=== PATIENT | female | born 1985 | race Caucasian/White ===

== ENCOUNTER → 2016-03-21 | Outpatient (REF) | payer BC ==
[~2016-03-21] MED LIST: IBUP60TA PO; PERC5TAB6 PO; VITAPRTA PO
== END | disposition home or self-care (01) ==
LOC: M LAB REF 16:49
PROVIDERS: ATTEND Advanced Practice Midwife
DX: Z12.4 Encounter for screening for malignant neoplasm of cervix (principal)

== ENCOUNTER → 2017-05-05 | Outpatient (CLI) | payer BC ==
[2017-05-05 14:28] LABS: ALBUMIN 4.1 GM/DL (3.2-5.2); ALBUMIN/GLOBULIN RATIO 1.28 (1.00-1.93); ALKALINE PHOSPHATASE 72 U/L (45-117); ALT/SGPT 22 U/L (12-78); ANION GAP 6 MEQ/L (8-16); AST/SGOT 15 U/L (7-37); BILIRUBIN,TOTAL 0.5 MG/DL (0.2-1.0); BLOOD UREA NITROGEN 7 MG/DL (7-18); CALCIUM LEVEL 8.6 MG/DL (8.5-10.1); CARBON DIOXIDE LEVEL 28 MEQ/L (21-32); CHLORIDE LEVEL 106 MEQ/L (98-107); CREATININE FOR GFR 0.63 MG/DL (0.55-1.30); GLOMERULAR FILTRATION RATE > 60.0 (>60); GLUCOSE, FASTING 88 MG/DL (70-100); POTASSIUM SERUM 4.1 MEQ/L (3.5-5.1); SODIUM LEVEL 140 MEQ/L (136-145); TOTAL PROTEIN 7.3 GM/DL (6.4-8.2)
[2017-05-05 14:32] LABS: BASO % 0.5 % (0.0-1.0); EOS # 0.1 10^3/uL (0.0-0.50); EOS % 1.1 % (0.0-3.0); HEMOGLOBIN 13.6 g/dl (12.0-16.0); IMMATURE GRANULOCYTE % 0.3 % (0-3.0); LYMPH # 2.3 10^3/uL (1.5-6.5); LYMPH % 34.8 % (24.0-44.0); MEAN CORPUSCULAR HEMOGLOBIN 28.9 pg (27.0-33.0); MEAN CORPUSCULAR HGB CONC 33.2 g/dl (32.0-36.5); MEAN CORPUSCULAR VOLUME 87.2 fl (80.0-96.0); MONO # 0.4 10^3/uL (0.0-0.8); MONO % 6.3 % (0.0-5.0); NEUTROPHILS # 3.7 10^3/uL (1.8-7.7); PLATELET COUNT, AUTOMATED 237 10^3/uL (150-450); RED CELL DISTRIBUTION WIDTH 12.3 % (11.5-14.5); WHITE BLOOD COUNT 6.5 10^3/uL (4.0-10.0)
== END ==
LOC: M SMT 11:52
DX: R10.11 Right upper quadrant pain (principal)
CPT/HCPCS: 80053

== ENCOUNTER → 2018-10-05 | Outpatient (REF) | payer BC ==
[~2018-10-05] MED LIST changes: +IBUP600T42 PO; -IBUP60TA PO; +PERC5TAB12 PO; -PERC5TAB6 PO
[2018-10-07 14:12] LABS: HPV HYBRID CAPTURE II Negative (Negative)
== END ==
LOC: M LAB REF 18:34
PROVIDERS: ATTEND Advanced Practice Midwife
DX: Z12.4 Encounter for screening for malignant neoplasm of cervix (principal)
CPT/HCPCS: 87624; G0123

== ENCOUNTER → 2019-03-08 | Outpatient (REF) | payer BC ==
[2019-03-08 14:02] LABS: INFLUENZA A AMPLIFICATION NEGATIVE (NEGATIVE); INFLUENZA B AMPLIFICATION NEGATIVE (NEGATIVE)
== END ==
LOC: M LAB REF 13:03
PROVIDERS: ATTEND Physician Assistant Medical
DX: J11.1 Influenza due to unidentified influenza virus with other respiratory manifestations (principal)

== ENCOUNTER → 2019-12-28 | Outpatient (CLI) | payer OTHER ==
[2019-12-28 09:05] LABS: HEMATOCRIT 33.5 % (36.0-47.0); MEAN CORPUSCULAR HEMOGLOBIN 30.9 pg (27.0-33.0); MEAN CORPUSCULAR HGB CONC 32.8 g/dl (32.0-36.5); MEAN CORPUSCULAR VOLUME 94.1 fl (80.0-96.0); PLATELET COUNT, AUTOMATED 188 10^3/uL (150-450); RED BLOOD COUNT 3.56 10^6/uL (4.00-5.40); WHITE BLOOD COUNT 6.6 10^3/uL (4.0-10.0)
== END ==
LOC: M LAB 07:14
PROVIDERS: ATTEND Specialist
DX: O34.211 Maternal care for low transverse scar from previous cesarean delivery (principal); Z3A.00 Weeks of gestation of pregnancy not specified

== ENCOUNTER → 2020-02-29 | Outpatient (REF) | payer OTHER | LOC: M SFHCWAGY 10:24 | PROVIDERS: ATTEND Specialist | DX: Z34.83 Encounter for supervision of other normal pregnancy, third trimester (principal) ==

== ENCOUNTER → 2020-03-17 | Outpatient (CLI) | payer OTHER ==
[~2020-03-17] MED LIST changes: +IBUP80TA PO; +OXYC1TAB23 PO
== END ==
LOC: M LABSMTC 09:35
PROVIDERS: ATTEND Anesthesiology
DX: Z01.812 Encounter for preprocedural laboratory examination (principal); Z20.822 Contact with and (suspected) exposure to COVID-19

== ENCOUNTER 2020-03-22 05:13 | Inpatient (IN) | payer OTHER ==
[~2020-03-22] VITALS: Ht 172.7 cm; Wt 83.9 kg
[2020-03-22] VITALS (8 sets, daily range): BP systolic 107–121; BP diastolic 56–71
[~2020-03-22 05:13] MED LIST changes: -IBUP80TA PO; -OXYC1TAB23 PO
--- OUTSIDE RECORDS SUMMARY | 2020-03-22 05:16 | CCD ---
Author Author [facility] Organization [facility] Address Unknown Phone Unavailable Care Team Providers Care Associate Sales Name Role Phone Kevan Delarosa CNM Unavailable Unavailabl Kevan Gille CNM Unavailable Unavailabl e Kevan Delarosa Madeleine CNM Unavailable Unavailabl e Edithlandigham, Kevan Madeleine CNM Unavailable Unavailabl e EdithlandighamKevan Madeleine CNM Unavailable Unavailabl e LuisamKevan Madeleine CNM Unavailable Unavailabl leila SmithamKevan Madeleine CNM Unavailable Unavailabl leila SmithamKevan Madeleine CNM Unavailable Unavailabl e Luisam D Madeleine CNM Unavailable Unavailabl Kevan Gill Madeleine CNM Unavailable Unavailabl Kevan Gill Madeleine CNM Unavailable Unavailabl Kevan Gill Madeleine CNM Unavailable Unavailabl e Vallandigham, D Madeleine CNM Unavailable Unavailabl e Vallandigham, D Madeleine CNM Unavailable Unavailabl e Vallandigham, D Madeleine CNM Unavailable Unavailabl e Vallandigham, D Madeleine CNM Unavailable Unavailabl e Vallandigham, D Madeleine CNM Unavailable Unavailabl e Vallandigham, D Madeleine CNM Unavailable Unavailabl e Vallandigham, D Madeleine CNM Unavailable Unavailabl e Vallandigham, D Madeleine CNM Unavailable Unavailabl e Vallandigham, D Madeleine CNM Unavailable Unavailabl e Vallandigham, D Madeleine CNM Unavailable Unavailabl e Vallandigham, D Madeleine CNM Unavailable Unavailabl e Vallandigham, D Madeleine CNM Unavailable Unavailabl e Vallandigham, D Madeleine CNM Unavailable Unavailabl e Petit, Breanna Unavailable Unavailable Petit, Breanna Unavailable Unavailable [place]LANDO, JAD Unavailable Unavailable Re-disclosure Warning The records that you are about to access may contain information from federally-assisted alcohol or drug abuse programs. If such information is present, then the following federally mandated warning applies: This information has been disclosed to you from records protected by federal confidentiality rules (42 CFR part 2). The federal rules prohibit you from making any further disclosure of this information unless further disclosure is expressly permitted by the written consent of the person to whom it pertains or as otherwise permitted by 42 CFR part 2. A general authorization for the release of medical or other information is NOT sufficient for this purpose. The Federal rules restrict any use of the information to criminally investigate or prosecute any alcohol or drug abuse patient.The records that you are about to access may contain highly sensitive health information, the redisclosure of which is protected by Article 27-F of the [facility] Public Health law. If you continue you may have access to information: Regarding HIV / AIDS; Provided by facilities licensed or operated by the [facility] Office of Mental Health; or Provided by the [facility] Office for People With Developmental Disabilities. If such information is present, then the following [facility] mandated warning applies: This information has been disclosed to you from confidential records which are protected by state law. State law prohibits you from making any further disclosure of this information without the specific written consent of the person to whom it pertains, or as otherwise permitted by law. Any unauthorized further disclosure in violation of state law may result in a fine or custodial sentence or both. A general authorization for the release of medical or other information is NOT sufficient authorization for further disc losure. Allergies and Adverse Reactions Type Description Substance Reaction Status Data Source(s ) Drug Class NO KNOWN ALLERGIES NO KNOWN ALLERGIES [facility] Family History Family Member Name Family Member Gender Family Member Status Date o f Status Description Data Source(s) Unknown Unknown Problem MEDENT ([facility], ) Unknown Unknown Problem MEDENT ([facility], ) Unknown Unknown Problem MEDENT ([facility], ) Encounters Encounter Providers Location Date Indications Data Source(s ) ( ESTOB) [facility] Est OB [address] [place] [address] 03/08/2020 12:00:00 AM EST eCW1 ([facility]) ( ESTOB) [facility] Est OB [address] [place] [address] 02/29/2020 12:00:00 AM EST eCW1 ([facility]) ( ESTOB) enter Est OB [address] [place] [address] 02/15/2020 12:00:00 AM EST eCW1 ([facility]) ( ESTOB) [facility] Est OB [address] [place] [address] 01/27/2020 12:00:00 AM EST eCW1 ([facility]) Unknown [address] [facility] [address] 01/10/2020 12:00:00 AM EST eCW1 ([facility]) ( ESTOB) enter Est OB [address] [place] [address] 01/04/2020 12:00:00 AM EST eCW1 ([facility]) ( ESTOB) [facility] Est OB [address] [place] [address] 12/29/2019 12:00:00 AM EST eCW1 ([facility]) ( ESTOB) [facility] Est OB [address] [place] [address] 12/01/2019 12:00:00 AM EDT eCW1 ([facility]) Outpatient Attender: Breanna PetitRefhosseiner: Henrry Alexis [facility] [id number] 2019 12:00:00 AM EDT - 2019 02:54:49 PM ED T Encounter for procreative genetic counseling [facility] Encounter for procreative genetic counse luz Outpatient Attender: JAD PERRYRefhosseiner: Madeleine Valnerisawilda [facility] 2019 12:00:00 AM EDT [facility] ([facility] ESTOB) [facility] Est OB [address] [place] [address] 09/07/2019 12:00:00 AM EDT eCW1 ([facility]) Immunizations Vaccine Date Status Description Data Source(s) Tdap 01/27/2020 10:31:00 AM EST completed e CW1 ([facility]) Tdap 01/27/2020 10:31:00 AM EST completed e CW1 ([facility]) Tdap 01/27/2020 10:31:00 AM EST completed e CW1 ([facility]) Tdap 01/27/2020 10:31:00 AM EST completed e CW1 ([facility]) Tdap 01/27/2020 10:31:00 AM EST completed e CW1 ([facility]) Medications Medication Brand Name Start Date Product Form Dose Route Admi nistrative Instructions Pharmacy Instructions Status Indications Reaction Description Data Source(s) 875-125 mg 03/08/2019 12:00:00 AM EST tablet 20 TAKE ONE TABLET BY MOUTH TWO TIMES A DAY FOR 10 DAYS TAKE ONE TABLET BY MOUTH TWO TIMES A DAY FOR 10 DAYS SOLD: 03/08/2019 [facility] Insurance Providers Payer name Policy type / Coverage type Policy ID Covered green party ID Covered green party's relationship to naranjo Policy [place] Plan Information [facility] [id number] [facility] [id number] SP [id number] [facility] U [id number] Spouse [id number] EXCELL[employer] H [id number] Self [id number] [employer] [place] 306/806 [id number] SP [id number] [employer] B [id number] S VYA [id number] [employer] [place] 306/806 [id number] SP [id number] [employer] Health Maintenance Organization (HMO) Self [employer] Health Maintenance Organization (HMO) Self [employer] B [id number] S VYS [id number] [employer] U [id number] [employer] [id number] FA2 [id number] [facility] CLAIMS [id number] [id number] [place] WAT[place]ren PPO 302/307 [id number] SP [id number] Problems, Conditions, and Diagnoses Code Display Name Description Problem Type Effective Dates Data Source(s) Z34.80 care Supervision of other normal Jose marroquin 09/03/2019 12:00:00 AM EDT eCW1 ([facility]) O35.2XX0 Maternal care for (suspected ) hereditary disease in fetus, not applicable or unspecified Maternal care for (suspected) hereditary disease in fetus, not applicable or unspecified Diagnosis 2019 12:22:39 PM [facility] Z31.5 Encounter for procreative genetic counse ling Encounter for procreative genetic counseling Diagnosis 2019 12:22:[address] [facility] Surgeries/Procedures Procedure Description Date Indications Data Source(s) Immunization: Boostrix 0.5mL IM (TDAP) 01/27/2020 12:0 0:00 AM EST eCW1 ([facility]) Results ID Date Data Source [id number] 03/17/2020 10:00:00 AM EST [facility] Name Value Range Interpretation Code Description Data Carole rce(s) Supporting Document(s) SARS coronavirus 2 RNA Not Detected [facility] [place] This lab was ordered by [facility] and reported by [facility]. ID Date Data Source Glucose Challenge Test 1 Hour 12/30/2019 08:18:36 AM EST eCW 1 ([facility]) Name Value Range Interpretation Code Description Data Carole rce(s) Supporting Document(s) 95 GLUCOSE CHALLENGE TEST 1 HOUR eCW1 ([facility]) ID Date Data Source CBC - Complete Blood Count 12/30/2019 08:18:33 AM EST eCW1 ( [facility]) Name Value Range Interpretation Code Description Data Carole rce(s) Supporting Document(s) 3.56 RED BLOOD COUNT eCW1 ([facility]) 11.0 HEMOGLOBIN eCW1 ([facility]) 6.6 WHITE BLOOD COUNT eCW1 ([facility]) 33.5 HEMATOCRIT eCW1 ([facility]) 94.1 MEAN CORPUSCULAR VOLUME eCW1 ( [facility]) 30.9 MEAN CORPUSCULAR HEMOGLOBIN eC W1 ([facility]) 32.8 MEAN CORPUSCULAR HGB CONC eCW1 ([facility]) 12.6 RED CELL DISTRIBUTION WIDTH eC W1 ([facility]) 188 PLATELET COUNT, AUTOMATED eCW1 ([facility]) ID Date Data Source [id number] 2019 02:35:38 PM EDT [facility] Name Value Range Interpretation Code Description Data Carole rce(s) Supporting Document(s) Progress Note [facility] [id number] lbm [file] [id number]= ID Date Data Source HEPATITIS C ANTIBODY INDEX 09/08/2019 01:59:54 PM EDT eCW1 ( [facility]) Name Value Range Interpretation Code Description Data Carole rce(s) Supporting Document(s) 0.1 eCW1 ([facility]) ID Date Data Source RUBELLA IMMUNE STATUS IgG 09/08/2019 01:59:45 PM EDT eCW1 ([facility]) Name Value Range Interpretation Code Description Data Carole rce(s) Supporting Document(s) IMMUNE eCW1 ([facility]) ID Date Data Source SYPHILIS ANTIBODY (RPR SCREEN) 09/08/2019 01:59:34 PM EDT eC W1 ([facility]) Name Value Range Interpretation Code Description Data Carole rce(s) Supporting Document(s) NONREACTIVE eCW1 ([facility]) ID Date Data Source [id number] 09/08/2019 01:59:26 PM EDT eCW1 ([facility]) Name Value Range Interpretation Code Description Data Carole rce(s) Supporting Document(s) eCW1 ([facility]) ID Date Data Source URINE CULTURE 09/08/2019 01:33:05 PM EDT eCW1 ([facility]) Name Value Range Interpretation Code Description Data Carole rce(s) Supporting Document(s) eCW1 ([facility]) ID Date Data Source CHLAMYDIA & GC DNA AMPLIFICAT 09/08/2019 09:01:11 AM EDT eCW 1 ([facility]) Name Value Range Interpretation Code Description Data Carole rce(s) Supporting Document(s) Chlamydia trachomatis rRNA [Presence] in Unspecified specimen by Probe and target amplification method NEGATIVE eCW1 ([facility]) ID Date Data Source HBSAG 09/08/2019 02:00:05 AM EDT eCW1 ([facility]) Name Value Range Interpretation Code Description Data Carole rce(s) Supporting Document(s) NEGATIVE eCW1 ([facility]) ID Date Data Source Type and Screen Prenatal1 09/07/2019 05:53:49 AM EDT eCW1 ([facility]) Name Value Range Interpretation Code Description Data Carole rce(s) Supporting Document(s) NEGATIVE eCW1 ([facility]) Procedure Vital Signs ID Date Data Source UNK Name Value Range Interpretation Code Description Data Source(s) Diastolic blood pressure 70 mm[Hg] 70 mm[Hg] eCW1 ([facility]) Systolic blood pressure 110 mm[Hg] 110 mm[Hg] e 1 ([facility]) Body weight 184 [lb_av] 184 [lb_av] W1 ([facility]) Diastolic blood pressure 62 mm[Hg] 62 mm[Hg] eCW1 ([facility]) Systolic blood pressure 108 mm[Hg] 108 mm[Hg] e CW1 ([facility]) Body mass index (BMI) [Ratio] 28.25 kg/m2 28.25 kg/m2 [facility] ([facility]) Body height 68 [in_i] 68 [in_i] eCW1 ([facility]) Body weight 84.28 kg 84.28 kg W1 ([facility]) Body weight 185.8 [lb_av] 185.8 [lb_av] eCW1 ([facility]) Diastolic blood pressure 68 mm[Hg] 68 mm[Hg] eCW1 ([facility]) Systolic blood pressure 108 mm[Hg] 108 mm[Hg] e CW1 ([facility]) Body mass index (BMI) [Ratio] 27.703 kg/m2 27.7 03 kg/m2 eCW1 ([facility]) Body height 68 [in_i] 68 [in_i] eCW1 ([facility]) Body weight 82.64 kg 82.64 kg eCW1 ([facility]) Body weight 182.2 [lb_av] 182.2 [lb_av] eCW1 ([facility]) Diastolic blood pressure 74 mm[Hg] 74 mm[Hg] eCW1 ([facility]) Systolic blood pressure 128 mm[Hg] 128 mm[Hg] e CW1 ([facility]) Body mass index (BMI) [Ratio] 27.369 kg/m2 27.3 69 kg/m2 eCW1 ([facility]) Body height 68 [in_i] 68 [in_i] eCW1 ([facility]) Body weight 180 [lb_av] 180 [lb_av] eCW1 ([facility]) Diastolic blood pressure 72 mm[Hg] 72 mm[Hg] eCW1 ([facility]) Systolic blood pressure 132 mm[Hg] 132 mm[Hg] e CW1 ([facility]) Body mass index (BMI) [Ratio] 26.548 kg/m2 26.5 48 kg/m2 eCW1 ([facility]) Body height 68 [in_i] 68 [in_i] eCW1 ([facility]) Body weight 79.2 kg 79.2 kg eCW1 ([facility]) Body weight 174.6 [lb_av] 174.6 [lb_av] eCW1 ([facility]) Diastolic blood pressure 70 mm[Hg] 70 mm[Hg] eCW1 ([facility]) Systolic blood pressure 122 mm[Hg] 122 mm[Hg] e CW1 ([facility]) Body mass index (BMI) [Ratio] 26.487 kg/m2 26.4 87 kg/m2 eCW1 ([facility]) Body height 68 [in_i] 68 [in_i] eCW1 ([facility]) Body weight 79.02 kg 79.02 kg eCW1 ([facility]) Body weight 174.2 [lb_av] 174.2 [lb_av] eCW1 ([facility]) Diastolic blood pressure 62 mm[Hg] 62 mm[Hg] eCW1 ([facility]) Systolic blood pressure 102 mm[Hg] 102 mm[Hg] e CW1 ([facility]) Body mass index (BMI) [Ratio] 25.483 kg/m2 25.4 83 kg/m2 eCW1 ([facility]) Body height 68 [in_i] 68 [in_i] eCW1 ([facility]) Body weight 76.02 kg 76.02 kg eCW1 ([facility]) Body weight 167.6 [lb_av] 167.6 [lb_av] eCW1 ([facility]) Diastolic blood pressure 64 mm[Hg] 64 mm[Hg] eCW1 ([facility]) Systolic blood pressure 122 mm[Hg] 122 mm[Hg] e CW1 ([facility]) Body mass index (BMI) [Ratio] 24.936 kg/m2 24.9 36 kg/m2 W1 ([facility]) Body height 68 [in_i] 68 [in_i] eCW1 ([facility]) Body weight 164 [lb_av] 164 [lb_av] eCW1 ([facility])
--- OUTSIDE RECORDS SUMMARY | 2020-03-22 05:16 | CCD ---
Author Author [facility] Organization [facility] Address Unknown Phone Unavailable Care Team Providers Care Tool And Die Repairer Name Role Phone Quentin Fallon Unavailable PROBLEMS Type Condition ICD9-CM Code [id number] Code Onset Dates Condition S tatus SNOMED Code Notes Problem Supervision of other normal Z34.80 Ac tive [id number] ALLERGIES No Known Allergies ENCOUNTERS from 1987 to 2020-01-14 Encounter Location Date Provider Diagnosis [facility] [address] [place] [address] Dec, Quentin Fallon Maternal care due to low transverse uterine scar from previous delivery O34.211 and 27 weeks gestation of Z3A.27 IMMUNIZATIONS No Information SOCIAL HISTORY Sex Assigned At : Social History Observation Description Sex Assigned At Unknown Alcohol Screening: Question Answer Notes Did you have a drink containing alcohol in the past year? No Points 0 Interpretation Negative REASON FOR REFERRAL No Information VITAL SIGNS Weight 174.2 lbs Dec, Weight-kg 79.02 kg Dec, Height 68 in Dec, BMI 26.487 kg/m2 Dec, Blood pressure systolic 122 mm Hg Dec, Blood pressure diastolic 70 mm Hg Dec, MEDICATIONS Medication SIG (Take, Route, Frequency, Duration) Notes Start Da te End Date Status 27-1 MG 1 tablet Orally Once a day Active PROCEDURES No Information RESULTS No Results REASON FOR VISIT 4 WEEK PN MEDICAL (GENERAL) HISTORY Type Description Date Medical History concussion 2005 Medical History chronic sinusitis Surgical History C section 2016 Hospitalization History childbirth Goals Section No Information Health Concerns No Information MEDICAL EQUIPMENT No Information MENTAL STATUS No Information FUNCTIONAL STATUS No Information ASSESSMENTS Encounter Date Diagnosis Assessment Notes Treatment Notes Treatm ent Clinical Notes Dec, Maternal care due to low tra nsverse uterine scar from previous delivery (ICD-10 - O34.211) Dec, 27 weeks gestation of (ICD-10 - Z3A.27 ) PLAN OF TREATMENT Next Appt Details Provider Name:Madeleine Delarosa, 2020-01-27 10:00:00 AM, [address] [place] [address], [phone], Provider Name:Quentin Fallon, 2020-02-29 02:20:00 PM, [address] [place] [address], [phone], Provider Name:Quentin Fallon, 2020-03-22 07:30:00 AM, [address] [place] [address], [phone], Provider Name:Baltazar Dumont, 2020-03-22 0 7:30:00 AM, [address] [place] [address], [phone], Provider Name:Quentin Fallon, 2020-04-05 01:00:00 PM, [address] [place] [address], [phone], Provider Name:Quentin Fallon, 2020-05-16 01:00:00 PM, [address] [place] [address], [phone], Insurance Providers Payer Name Payer Address Payer Phone Insured Name Patient Relati onship to Insured Coverage Start Date Coverage End Date [employer] [address] [address] [facility] [address] DINA TOLBERT self
--- OUTSIDE RECORDS SUMMARY | 2020-03-22 05:16 | CCD ---
Author Author [facility] Organization [facility] Address Unknown Phone Unavailable Care Team Providers Care Nurse Emergency Room Name Role Phone Loretta Almeida Unavailable PROBLEMS Type Condition ICD9-CM Code [id number] Code Onset Dates Condition S tatus SNOMED Code Notes Problem Supervision of other normal Z34.80 Ac tive [id number] ALLERGIES No Known Allergies ENCOUNTERS from 1987 to 2020-02-16 Encounter Location Date Provider Diagnosis [facility] [address] [place] [address] Jan, Loretta Almeida Previous de livery affecting O34.219 and 33 weeks gestation of Z3A.33 IMMUNIZATIONS Vaccine Route Administration Date Status TDAP 0.5mL (Boostrix) IM Intramuscular Jan 27, 2020 Administe red SOCIAL HISTORY Sex Assigned At : Social History Observation Description Sex Assigned At Unknown Alcohol Screening: Question Answer Notes Did you have a drink containing alcohol in the past year? No Points 0 Interpretation Negative REASON FOR REFERRAL No Information VITAL SIGNS Weight 182.2 lbs Jan, Weight-kg 82.64 kg Jan, Height 68 in Jan, BMI 27.703 kg/m2 Jan, Blood pressure systolic 108 mm Hg Jan, Blood pressure diastolic 68 mm Hg Jan, MEDICATIONS Medication SIG (Take, Route, Frequency, Duration) Notes Start Da te End Date Status 27-1 MG 1 tablet Orally Once a day Active PROCEDURES No Information RESULTS No Results REASON FOR VISIT 4WK PN MEDICAL (GENERAL) HISTORY Type Description Date Medical History concussion 2004 Medical History chronic sinusitis Surgical History C section 2016 Hospitalization History childbirth Goals Section No Information Health Concerns No Information MEDICAL EQUIPMENT No Information MENTAL STATUS No Information FUNCTIONAL STATUS No Information ASSESSMENTS Encounter Date Diagnosis Assessment Notes Treatment Notes Treatm ent Clinical Notes Jan, Previous delivery affecting pre gnancy (ICD-10 - O34.219) Jan, 33 weeks gestation of (ICD-10 - Z3A.33 ) PLAN OF TREATMENT Next Appt Details 2 Weeks Reason:PN Provider Name:Quentin Fallon, 2020-02-29 02:20:00 PM, [address] [place] [address], [phone], Provider Name:Madeleine Delarosa, 2020-03-02 10:00:00 AM, [address] [place] [address], [phone], Provider Name:Quentin Fallon, 2020-03-22 07:30:00 AM, [address] [place] [address], [phone], Provider Name:Baltazar Dumont, 2020-03-22 0 7:30:00 AM, [address] [place] [address], [phone], Provider Name:Quentin Fallon, 2020-04-05 01:00:00 PM, [address] [place] [address], [phone], Provider Name:Quentin Fallon, 2020-05-16 01:00:00 PM, [address] [place] [address], [phone], Follow Up:2 WeeksPN Insurance Providers Payer Name Payer Address Payer Phone Insured Name Patient Relati onship to Insured Coverage Start Date Coverage End Date [facility] [address] [address] [facility] [phone] DINA TOLBERT self
--- OUTSIDE RECORDS SUMMARY | 2020-03-22 05:16 | CCD ---
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 Name Role Phone Quentin Fallon Unavailable PROBLEMS Type Condition ICD9-CM Code [id number] Code Onset Dates Condition S tatus SNOMED Code Notes Problem Supervision of other normal Z34.80 Ac tive [id number] ALLERGIES No Known Allergies ENCOUNTERS from 1987 to 2020-01-10 Encounter Location Date Provider Diagnosis [facility] [address] [place] [phone] Dec, Quentin Fallon IMMUNIZATIONS No Information SOCIAL HISTORY Sex Assigned At : Social History Observation Description Sex Assigned At Unknown Alcohol Screening: Question Answer Notes Did you have a drink containing alcohol in the past year? No Points 0 Interpretation Negative REASON FOR REFERRAL No Information VITAL SIGNS No information MEDICATIONS Medication SIG (Take, Route, Frequency, Duration) Notes Start Da te End Date Status 27-1 MG 1 tablet Orally Once a day Active PROCEDURES No Information RESULTS No Results REASON FOR VISIT AUTHORIZATION MEDICAL (GENERAL) HISTORY Type Description Date Medical History concussion 2004 Medical History chronic sinusitis Surgical History C section 2016 Hospitalization History childbirth Goals Section No Information Health Concerns No Information MEDICAL EQUIPMENT No Information MENTAL STATUS No Information FUNCTIONAL STATUS No Information ASSESSMENTS No Information PLAN OF TREATMENT Next Appt Details Provider Name:Madeleine Delarosa, 2020-01-27 10:00:00 AM, [address] [place] [address], [phone], Provider Name:Quentin Fallon, 2020-02-29 02:20:00 PM, [address] [place] [address], [phone], Provider Name:Quentin Fallon, 2020-03-22 07:30:00 AM, [address] [place] [address], [phone], Provider Name:Baltazar Dmuont, 2020-03-22 0 7:30:00 AM, [address] [place] [address], [phone], Provider Name:Quentin Fallon, 2020-04-05 01:00:00 PM, [address] [place] [address], [phone], Provider Name:Quentin Fallon, 2020-05-16 01:00:00 PM, [address] [place] [address], [phone], Insurance Providers Payer Name Payer Address Payer Phone Insured Name Patient Relati onship to Insured Coverage Start Date Coverage End Date [facility] [address] [address] [facility] [phone] DINA TOLBERT self
--- OUTSIDE RECORDS SUMMARY | 2020-03-22 05:16 | CCD ---
Author Author [facility] Organization [facility] Address Unknown Phone Unavailable Care Team Providers Care Veterans' Counselor Name Role Phone Quentin Fallon Unavailable PROBLEMS Type Condition ICD9-CM Code [id number] Code Onset Dates Condition S tatus SNOMED Code Notes Problem Supervision of other normal Z34.80 Ac tive [id number] ALLERGIES No Known Allergies ENCOUNTERS from 1987 to 2020-03-15 Encounter Location Date Provider Diagnosis [facility] [address] [place] [address] Feb, Quentin Fallon 37 weeks gestation o f Z3A.37 and Encounter for maternal care for low transverse scar from previous delivery O34.211 IMMUNIZATIONS Vaccine Route Administration Date Status TDAP 0.5mL (Boostrix) IM Intramuscular Jan 27, 2020 Administe red SOCIAL HISTORY Sex Assigned At : Social History Observation Description Sex Assigned At Unknown Alcohol Screening: Question Answer Notes Did you have a drink containing alcohol in the past year? No Points 0 Interpretation Negative REASON FOR REFERRAL No Information VITAL SIGNS Weight 184 lbs Feb, Blood pressure systolic 110 mm Hg Feb, Blood pressure diastolic 70 mm Hg Feb, MEDICATIONS Medication SIG (Take, Route, Frequency, Duration) Notes Start Da te End Date Status 27-1 MG 1 tablet Orally Once a day Active PROCEDURES No Information RESULTS No Results REASON FOR VISIT 1WK PN MEDICAL (GENERAL) HISTORY Type Description Date Medical History concussion 2005 Medical History chronic sinusitis Surgical History C section 2016 Hospitalization History childbirth Goals Section No Information Health Concerns No Information MEDICAL EQUIPMENT No Information MENTAL STATUS No Information FUNCTIONAL STATUS No Information ASSESSMENTS Encounter Date Diagnosis Assessment Notes Treatment Notes Treatm ent Clinical Notes Feb, 37 weeks gestation of (ICD-10 - Z3A.37 ) Feb, Encounter for maternal care for low transverse scar from previous delivery (ICD-10 - O34.211) PLAN OF TREATMENT Next Appt Details Provider Name:Quentin Fallon, 2020-03-17 10:40:00 AM, [address] [place] [address], [phone], Provider Name:Quentin Fallon, 2020-03-22 07:30:00 AM, [address] [place] [address], [phone], Provider Name:Baltazar Dumont, 2020-03-22 0 7:30:00 AM, [address] [place] [address], [phone], Provider Name:Quentin Fallon, 2020-04-05 01:00:00 PM, [address] [place] [address], [phone], Provider Name:Quentin Fallon, 2020-05-16 01:00:00 PM, [address] [place] [address], [phone], Insurance Providers Payer Name Payer Address Payer Phone Insured Name Patient Relati onship to Insured Coverage Start Date Coverage End Date [facility] [address] [address] [facility] [phone] DINA TOLBERT self
--- OUTSIDE RECORDS SUMMARY | 2020-03-22 05:16 | CCD ---
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 Phone Quentin Fallon Unavailable PROBLEMS Type Condition ICD9-CM Code [id number] Code Onset Dates Condition S tatus SNOMED Code Notes Problem Supervision of other normal Z34.80 Ac tive [id number] ALLERGIES No Known Allergies ENCOUNTERS from 1987 to 2020-03-15 Encounter Location Date Provider Diagnosis [facility] [address] [place] [address] Feb, Quentin Fallon Encounter for superv ision of other normal in third trimester Z34.83 and 35 weeks gestation of Z3A.35 IMMUNIZATIONS Vaccine Route Administration Date Status TDAP 0.5mL (Boostrix) IM Intramuscular Jan 27, 2020 Administe red SOCIAL HISTORY Sex Assigned At : Social History Observation Description Sex Assigned At Unknown Alcohol Screening: Question Answer Notes Did you have a drink containing alcohol in the past year? No Points 0 Interpretation Negative REASON FOR REFERRAL No Information VITAL SIGNS Weight 185.8 lbs Feb, Weight-kg 84.28 kg Feb, Height 68 in Feb, BMI 28.25 kg/m2 Feb, Blood pressure systolic 108 mm Hg Feb, Blood pressure diastolic 62 mm Hg Feb, MEDICATIONS Medication SIG (Take, Route, Frequency, Duration) Notes Start Da te End Date Status 27-1 MG 1 tablet Orally Once a day Active PROCEDURES No Information RESULTS No Results REASON FOR VISIT 1WK PN & PRE OP C/S 03/22/19 MEDICAL (GENERAL) HISTORY Type Description Date Medical History concussion 2004 Medical History chronic sinusitis Surgical History C section 2016 Hospitalization History childbirth Goals Section No Information Health Concerns No Information MEDICAL EQUIPMENT No Information MENTAL STATUS No Information FUNCTIONAL STATUS No Information ASSESSMENTS Encounter Date Diagnosis Assessment Notes Treatment Notes Treatm ent Clinical Notes Feb, Encounter for supervision of other normal in third trimester (ICD-10 - Z34.83) Feb, 35 weeks gestation of (ICD-10 - Z3A.35 ) PLAN OF TREATMENT Treatment Notes Test Name Order Date GROUP B STREP CULTURE 2020-03-15 Next Appt Details Provider Name:Quentin Fallon, 2020-03-17 10:40:00 AM, [address] [place] [address], [phone], Provider Name:Quentin Fallon, 2020-03-22 07:30:00 AM, [address] [place] [address], [phone], Provider Name:Baltazar Dumont, 2020-03-22 0 7:30:00 AM, [address] [place] [address], [phone], Provider Name:Quentin Fallon, 2020-04-05 01:00:00 PM, [address] [place] [address], [phone], Provider Name:Quentin Fallon, 2020-05-16 01:00:00 PM, [address] [place] [address], [phone], Insurance Providers Payer Name Payer Address Payer Phone Insured Name Patient Relati onship to Insured Coverage Start Date Coverage End Date [facility] [address] [address] [facility] [phone] DINA TOLBERT self
--- OUTSIDE RECORDS SUMMARY | 2020-03-22 05:16 | CCD ---
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 Phone Quentin Fallon Unavailable PROBLEMS Type Condition ICD9-CM Code [id number] Code Onset Dates Condition S tatus SNOMED Code Notes Problem Supervision of other normal Z34.80 Ac tive [id number] ALLERGIES No Known Allergies ENCOUNTERS from 1987 to 2020-02-02 Encounter Location Date Provider Diagnosis [facility] [address] [place] [address] Dec, Quentin Fallon Maternal care due to low transverse uterine scar from previous delivery O34.211 ; Other specified diseases and conditions complicating puerperium O99.893 ; Light headedness R42 and 28 weeks gestation of Z3A.28 IMMUNIZATIONS Vaccine Route Administration Date Status TDAP 0.5mL (Boostrix) IM Intramuscular Jan 27, 2020 Administe red SOCIAL HISTORY Sex Assigned At : Social History Observation Description Sex Assigned At Unknown Alcohol Screening: Question Answer Notes Did you have a drink containing alcohol in the past year? No Points 0 Interpretation Negative REASON FOR REFERRAL No Information VITAL SIGNS Weight 174.6 lbs Dec, Weight-kg 79.2 kg Dec, Height 68 in Dec, BMI 26.548 kg/m2 Dec, Blood pressure systolic 132 mm Hg Dec, Blood pressure diastolic 72 mm Hg Dec, MEDICATIONS Medication SIG (Take, Route, Frequency, Duration) Notes Start Da te End Date Status 27-1 MG 1 tablet Orally Once a day Active PROCEDURES No Information RESULTS No Results REASON FOR VISIT PRE CLAMPSIA MEDICAL (GENERAL) HISTORY Type Description Date Medical [...] from previous delivery (ICD-10 - O34.211) Dec, Other specified diseases and conditions complicating puerperium (ICD-10 - O99.893) Dec, Light headedness (ICD-10 - R42) Dec, 28 weeks gestation of (ICD-10 - Z3A.28 ) PLAN OF TREATMENT Next Appt Details Provider Name:Baltazar Dumont, 2020-02-14 0 8:20:00 AM, [address] [place] [address], [phone], Provider Name:Quentin Fallon 2020-02-29 02:20:00 PM, [address] [place] [address], [phone], Provider Name:Quentin Fallon 2020-03-22 07:30:00 AM, [address] [place] [address], [phone], Provider Name:Baltazar Dumont, 2020-03-22 0 7:30:00 AM, [address] [place] [address], [phone], Provider Name:Quentin Fallon 2020-04-05 01:00:00 PM, [address] [place] [address], [phone], Provider Name:Quentin Fallon, 2020-05-16 01:00:00 PM, [address] [place] [address], [phone], Insurance Providers Payer Name Payer Address Payer Phone Insured Name Patient Relati onship to Insured Coverage Start Date Coverage End Date [facility] [address] [address] [facility] [phone] DINA TOLBERT self
--- OUTSIDE RECORDS SUMMARY | 2020-03-22 05:16 | CCD ---
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 Name Role Phone EdithMadeleine carr Unavailable PROBLEMS Type Condition ICD9-CM Code [id number] Code Onset Dates Condition S tatus SNOMED Code Notes Problem Supervision of other normal Z34.80 Ac tive [id number] ALLERGIES No Known Allergies ENCOUNTERS from 1987 to 2020-01-29 Encounter Location Date Provider Diagnosis [facility] [address] [place] [address] Jan, Madeleine Delarosa Maternal care due to low transverse uterine scar from previous delivery O34.211 ; 31 weeks gestation of Z3A.31 and Encounter for immunization Z23 IMMUNIZATIONS Vaccine Route Administration Date Status TDAP 0.5mL (Boostrix) IM Intramuscular Jan 27, 2020 Administe red SOCIAL HISTORY Sex Assigned At : Social History Observation Description Sex Assigned At Unknown Alcohol Screening: Question Answer Notes Did you have a drink containing alcohol in the past year? No Points 0 Interpretation Negative REASON FOR REFERRAL No Information VITAL SIGNS Weight 180 lbs Jan, Height 68 in Jan, BMI 27.369 kg/m2 Jan, Blood pressure systolic 128 mm Hg Jan, Blood pressure diastolic 74 mm Hg Jan, MEDICATIONS Medication SIG (Take, Route, Frequency, Duration) Notes Start Da te End Date Status 27-1 MG 1 tablet Orally Once a day Active PROCEDURES from 1987 to 2020-01-29 Procedure Date Ordered Result Body Site Immunization: Boostrix 0.5mL IM (TDAP) 2020-01-27 N/A RESULTS No Results REASON FOR VISIT 4WK PN MEDICAL (GENERAL) HISTORY Type Description Date Medical History concussion 2004 Medical History chronic sinusitis Surgical History C section 2015 Hospitalization History childbirth Goals Section No Information Health Concerns No Information MEDICAL EQUIPMENT No Information MENTAL STATUS No Information FUNCTIONAL STATUS No Information ASSESSMENTS Encounter Date Diagnosis Assessment Notes Treatment Notes Treatm ent Clinical Notes Jan, Maternal care due to low tra nsverse uterine scar from previous delivery (ICD-10 - O34.211) Jan, 31 weeks gestation of (ICD-10 - Z3A.31 ) Jan, Encounter for immunization (ICD-10 - Z23) PLAN OF TREATMENT Next Appt Details 4 Weeks Reason:return ob Provider Name:Baltazar Dumont, 2020-02-14 0 8:20:00 AM, [address] [place] [address], [phone], Provider Name:Quentin Fallon, 2020-02-29 02:20:00 PM, [address] [place] [address], [phone], Provider Name:Quentin Fallon 2020-03-22 07:30:00 AM, [address] [place] [address], [phone], Provider Name:Baltazar Dumont, 2020-03-22 0 7:30:00 AM, [address] [place] [address], [phone], Provider Name:Quentin Fallon 2020-04-05 01:00:00 PM, [address] [place] [address], [phone], Provider Name:Quentin Fallon 2020-05-16 01:00:00 PM, [address] [place] [address], [phone], Follow Up:4 Weeksreturn ob Insurance Providers Payer Name Payer Address Payer Phone Insured Name Patient Relati onship to Insured Coverage Start Date Coverage End Date [facility] [address] [address] [facility] [phone] DINA TOLBERT self
--- OUTSIDE RECORDS SUMMARY | 2020-03-22 05:16 | CCD ---
Author Author [facility] Organization [facility] Address Unknown Phone Unavailable Care Team Providers Care Data Entry Machine Operator Name Role Phone Quentin Fallon Unavailable PROBLEMS Type Condition ICD9-CM Code [id number] Code Onset Dates Condition S tatus SNOMED Code Notes Problem Supervision of other normal Z34.80 Ac tive [id number] ALLERGIES No Known Allergies ENCOUNTERS from 1987 to 2020-01-05 Encounter Location Date Provider Diagnosis [facility] [address] [place] [address] Nov, Quentin Fallon Maternal care due to low transverse uterine scar from previous delivery O34.211 and 23 weeks gestation of Z3A.23 IMMUNIZATIONS No Information SOCIAL HISTORY Sex Assigned At : Social History Observation Description Sex Assigned At Unknown Alcohol Screening: Question Answer Notes Did you have a drink containing alcohol in the past year? No Points 0 Interpretation Negative REASON FOR REFERRAL No Information VITAL SIGNS Weight 167.6 lbs Nov, Weight-kg 76.02 kg Nov, Height 68 in Nov, BMI 25.483 kg/m2 Nov, Blood pressure systolic 102 mm Hg Nov, Blood pressure diastolic 62 mm Hg Nov, MEDICATIONS Medication SIG (Take, Route, Frequency, Duration) Start Date En d Date Status 27-1 MG 1 tablet Orally Once a day Active PROCEDURES No Information RESULTS Component Value Reference Range CBC - Complete Blood Count Reviewed date:12/30/2019 07:18:33 Interpretation: Performing Lab:[facility], [facility] [address] [facility] [id number] , ,[place] [address] WHITE BLOOD COUNT 6.6 4.0-10.0 RED BLOOD COUNT 3.56 4.00-5.40 HEMOGLOBIN 11.0 12.0-15.5 HEMATOCRIT 33.5 36.0-47.0 MEAN CORPUSCULAR VOLUME 94.1 80.0-96.0 MEAN CORPUSCULAR HEMOGLOBIN 30.9 27.0-33.0 MEAN CORPUSCULAR HGB CONC 32.8 32.0-36.5 RED CELL DISTRIBUTION WIDTH 12.6 11.5-14.5 PLATELET COUNT, AUTOMATED 188 150-450 Glucose Challenge Test 1 Hour Reviewed date:12/30/2019 07:18:36 Interpretation: Performing Lab:[facility], [facility] [address] [facility] [id number] , ,[place] [address] GLUCOSE CHALLENGE TEST 1 HOUR 95 LESS THAN 140 REASON FOR VISIT 4WK PN MEDICAL (GENERAL) HISTORY Type Description Date Medical History concussion 2004 Medical History chronic sinusitis Surgical History C section 2015 Hospitalization History childbirth Goals Section No Information Health Concerns No Information MEDICAL EQUIPMENT No Information MENTAL STATUS No Information FUNCTIONAL STATUS No Information ASSESSMENTS Encounter Date Diagnosis Notes Nov, 23 weeks gestation of (ICD-10 - Z3A.23) Nov, Maternal care due to low tra nsverse uterine scar from previous delivery (ICD-10 - O34.211) PLAN OF TREATMENT Next Appt Details 4 Weeks Reason:PN Provider Name:Madeleine Delarosa, 2020-01-27 10:00:00 AM, [address] [place] [address], [phone], Provider Name:Quentin Fallon, 2020-03-22 07:30:00 AM, [address] [place] [address], [phone], Provider Name:Baltazar Dumont, 2020-03-22 0 7:30:00 AM, [address] [place] [address], [phone], Follow Up:4 WeeksPN Insurance Providers Payer Name Payer Address Payer Phone Insured Name Patient Relati onship to Insured Coverage Start Date Coverage End Date [facility] [address] [address] [facility] [phone] DINA TOLBERT self
[2020-03-22] MEDS ORDERED: BICITRA 30ML SOLN UDC PO ONE (05:30)
[2020-03-22] MEDS ORDERED: LR 1,000 ML IV SCH ×2 (05:30→09:15)
[2020-03-22] MEDS ORDERED: ceFAZolin SOD 2 GM in IV 1 EA IV ONE (05:30)
[2020-03-22] MEDS ORDERED: LR 1,000 ML IV ONE (05:30)
[2020-03-22 06:12] LABS: HEMATOCRIT 34.1 % (36.0-47.0); HEMOGLOBIN 11.1 g/dl (12.0-15.5); MEAN CORPUSCULAR HEMOGLOBIN 29.5 pg (27.0-33.0); MEAN CORPUSCULAR HGB CONC 32.6 g/dl (32.0-36.5); MEAN CORPUSCULAR VOLUME 90.7 fl (80.0-96.0); PLATELET COUNT, AUTOMATED 179 10^3/uL (150-450); RED BLOOD COUNT 3.76 10^6/uL (4.00-5.40); WHITE BLOOD COUNT 5.9 10^3/uL (4.0-10.0)
[2020-03-22] MEDS ORDERED: MORPHINE PRES-FREE INJ 10 MG/10 ML VIAL (J2274) As Ordered ONE (07:31)
[2020-03-22] MEDS ORDERED: OXYTOCIN 30 UNITS IN 0.9% NaCl 500ML IV BAG (J2590) As Ordered ONE ×2 (07:32→09:26)
[2020-03-22] MEDS ORDERED: ePHEDrine SULFATE 25 MG/5 ML(5MG/ML) SYRINGE As Ordered ONE (07:32)
[2020-03-22] MEDS ORDERED: PHENYLephrine 500MCG 5ML (100MCG/ML) SYRINGE As Ordered ONE (07:32)
[2020-03-22] MEDS ORDERED: diphenhydrAMINE 50MG/ML VIAL (J1200) IV PRN (07:57)
[2020-03-22] MEDS ORDERED: NALBUPHINE HCL 10 MG/ML AMP (J2300) IV PRN (07:57)
[2020-03-22] MEDS ORDERED: NALOXONE INJ 0.4MG/1ML VIAL (J2310 PER 1MG) IV PRN ×2 (07:57)
[2020-03-22] MEDS ORDERED: ONDANSETRON 4MG/2ML VIAL IV PRN ×2 (07:57→09:15)
[2020-03-22] MEDS ORDERED: METOCLOPRAMIDE INJ 10MG/2ML VIAL (J2765 PER 1) IV PRN (07:57)
[2020-03-22] MEDS ORDERED: METOCLOPRAMIDE INJ 10MG/2ML VIAL (J2765 PER 1) As Ordered ONE (08:03)
[2020-03-22] MEDS ORDERED: KETOROLAC 60MG 2ML VIAL As Ordered ONE (08:03)
[2020-03-22] MEDS ORDERED: ONDANSETRON 4MG/2ML VIAL As Ordered ONE (08:03)
--- NOTE | 2020-03-22 09:04 | ROOPDOC ---
[facility] Report Of Operation Report of Operation DATE OF PROCEDURE: 03/22/20 Report of operation Preoperative diagnosis: 39 weeks, prior section Postoperative diagnosis: same Procedure: Repeat low transverse section. Surgeon: Stevie Knowles M.D. Asst.: Baltazar Dumont CNM EBL: 500 ml. Urine output: 100 mL's. Findings: 7 lbs. 8 oz. female , Apgars 8 and 9 g normal uterus, fallopian tubes, ovaries. Operative summary: Patient taken to the operating room where spinal anesthesia was induced. She was prepped draped in a sterile fashion in the supine position. A Wilkes catheter was placed. A Pfannenstiel skin incision was made with scalpel. Fascia was incised and extended bilaterally. The peritoneal cavity was entered. A Mobius retractor was placed. A bladder flap was created. A curvilinear incision was made in lower uterine segment until Clear fluid was noted. The incision was extended manually. The infant was delivered from the vertex position without difficulty. Cord was double clamped and cut. The infant was handed to awaiting nurses. The placenta was expressed. Uterus was closed with O-Vicryl in a running locked fashion. A second imbricating layer of Vicryl was placed. Peritoneum was closed with 2-0 Vicryl a running fashion. Fascia was closed with 0 Vicryl in running fashion. Skin was closed 4-0 Monocryl subcuticular sutures. Sponge, instrument and needle counts were correct. Baltazar Dumont CNM, assisted with all aspects of the procedure. She helped each layer of the incision and deliver the fetus. STEVIE KNOWLES MD Mar 22, 2020 09:04
[2020-03-22] MEDS ORDERED: OXYTOCIN DRIP 30 UNITS in IV 1 EA IV SCH (09:05)
[2020-03-22] MEDS ORDERED: OXYC1TAB23 PO (09:08)
[2020-03-22] MEDS ORDERED: IBUP80TA PO (09:09)
[2020-03-22] MEDS ORDERED: fentaNYL 100 MCG/2 ML INJECTION (J3010) As Ordered ONE (09:13)
[2020-03-22] MEDS: fentaNYL 100 MCG/2 ML INJECTION (J3010) IV PRN ×4 (09:14→09:36)
[2020-03-22] MEDS ORDERED: ONDANSETRON 4 MG TAB PO PRN (09:15)
[2020-03-22] MEDS ORDERED: MEASLES,MUMPS,RUBELLA VACCINE INJ (MMR-II) (90707) SC SCH (09:15)
[2020-03-22] MEDS ORDERED: PERCOCET 5MG/325MG TAB PO PRN (09:15)
[2020-03-22] MEDS ORDERED: RHOGAM 300 MCG (1500 IU) INJ (J2790) IM SCH (09:15)
[2020-03-22] MEDS ORDERED: DOCUSATE SODIUM 100MG CAPSULE PO PRN (09:15)
[2020-03-22] MEDS ORDERED: oxyCODONE 5MG TAB PO PRN (09:15)
[2020-03-22] MEDS: PERCOCET 5MG/325MG TAB PO PRN (12:42)
[2020-03-22] MEDS: LR 1,000 ML IV SCH ×2 (12:42→17:05)
[2020-03-22] MEDS: KETOROLAC 30 MG/ML 1ML VIAL IV SCH ×2 (14:55→19:40)
[2020-03-23] MEDS: KETOROLAC 30 MG/ML 1ML VIAL IV SCH (01:33)
[2020-03-23 02:00] VITALS: BP 105/56
[2020-03-23 05:36] VITALS: BP 128/66
[2020-03-23 09:41] LABS: HEMOGLOBIN 10.1 g/dl (12.0-15.5); MEAN CORPUSCULAR HEMOGLOBIN 30.3 pg (27.0-33.0); MEAN CORPUSCULAR HGB CONC 32.6 g/dl (32.0-36.5); MEAN CORPUSCULAR VOLUME 93.1 fl (80.0-96.0); PLATELET COUNT, AUTOMATED 142 10^3/uL (150-450); RED BLOOD COUNT 3.33 10^6/uL (4.00-5.40); WHITE BLOOD COUNT 7.5 10^3/uL (4.0-10.0)
[2020-03-23] MEDS: PRENATAL VITAMINS CHEWABLE TABLET PO SCH (09:50)
[2020-03-23] MEDS: IBUPROFEN 800 MG TAB PO SCH ×2 (09:51→17:45)
[2020-03-23 10:01] VITALS: BP 122/65
[2020-03-23 14:00] VITALS: BP 114/56
[2020-03-23 18:00] VITALS: BP 130/59
[2020-03-23 22:00] VITALS: BP 118/58
[2020-03-23] MEDS: PERCOCET 5MG/325MG TAB PO PRN (23:55)
[2020-03-24 02:00] VITALS: BP 103/58
[2020-03-24] MEDS: IBUPROFEN 800 MG TAB PO SCH ×2 (02:54→09:23)
[2020-03-24 06:11] VITALS: BP 104/58
--- NOTE | 2020-03-24 09:16 | DS.PDOC ---
Discharge Summary General Date of Admission Mar 22, 2020 at 05:13 Date of Discharge 03/24/2020 Attending Physician: STEVIE KNOWLES MD Discharge Summary PROCEDURES PERFORMED DURING STAY: [None]. ADMITTING DIAGNOSES: 1. 39 weeks gestation, prior . DISCHARGE DIAGNOSES: 1. Same. COMPLICATIONS/CHIEF COMPLAINT: Previous Section. HISTORY OF PRESENT ILLNESS: 34-year-old female at 39 weeks gestation presents for repeat section. She had no complications. HOSPITAL COURSE: On 03/22/2020 The patient underwent repeat section for viable infant with no complications. . Her postoperative course was unrema rkable. She had adequate return of bladder and bowel function. She was deemed stable for discharge on postop day #2. DISCHARGE MEDICATIONS: Please see below. ALLERGIES: Please see below. PHYSICAL EXAMINATION ON DISCHARGE: VITAL SIGNS: Please see below. GENERAL: Within normal limits HEENT: Normocephalic, atraumatic CARDIOVASCULAR EXAMINATION: RRR RESPIRATORY EXAMINATION: Clear to auscultation ABDOMINAL EXAMINATION: Nontender, soft, incision clean, dry and intact EXTREMITIES: Nontender LABORATORY DATA: Please see below. PROGNOSIS: Good ACTIVITY: As tolerated. DIET: Regular DISCHARGE INSTRUCTIONS: 1. Discharge home. 2. Instructions reviewed DISCHARGE CONDITION: Stable. TIME SPENT ON DISCHARGE: Greater than 10 minutes. Vital Signs/I&Os Vital Signs Date Time Temp Pulse Resp B/P (MAP) Pulse Ox O2 Delivery O2 Flow Rate FiO2 03/24/20 06:11 98.4 70 18 104/58 (73) 03/24/20 02:00 98 Room Air Discharge Medications Scheduled Ibuprofen (Ibuprofen) 800 Mg Tablet, 800 MG PO Q8H Multivit/Min/Pren/Fol Ac/Iron ( Vitamin Plus Low Iron) 1 Tab Tab, 1 TAB PO DAILY, (Reported) Scheduled PRN Oxycodone HCl/Acetaminophen (Oxycodone-Acetaminophen 5-325) 1 Each Tablet, 1 TAB PO TIDP PRN for pain Allergies Coded Allergies: No Known Allergies (Unverified , 03/22/20) STEVIE KNOWLES MD Mar 24, 2020 09:16
[2020-03-24] MEDS: PRENATAL VITAMINS CHEWABLE TABLET PO SCH (09:23)
== END 2020-03-24 11:20 | disposition home or self-care (01) | DRG 788 ==
LOC: M LDI 05:13 → M OBS 09:56
PROVIDERS: ADMIT Specialist; ATTEND Specialist
PROC: 10D00Z1 Extraction of Products of Conception, Low, Open Approach (ICD-10-PCS; principal; 2020-03-22 07:30)
DX: O34.211 Maternal care for low transverse scar from previous cesarean delivery (principal); Z3A.39 39 weeks gestation of pregnancy; Z37.0 Single live birth